=== PATIENT | female | born 2000 | race Caucasian/White ===

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

== ENCOUNTER 2022-05-26 14:31 | Emergency (ER) | payer SELFPAY ==
[2022-05-26 14:58] VITALS: BP 131/83; PULSE 87
== END 2022-05-26 15:00 | disposition left against medical advice (07) ==
LOC: FB.ED 14:31
DX: Z53.21 Procedure and treatment not carried out due to patient leaving prior to being seen by health care provider (principal)

== ENCOUNTER 2023-10-11 05:09 | Emergency (ER) | payer BC, OTHER ==
[2023-10-11] MEDS: methylPREDNISolone Sodium Succinate 125 MG/2 ML SDV IM ONE (05:32)
[2023-10-11] MEDS: Albuterol/Ipratropium 3.0-0.5 MG/3 ML Neb Soln NEB ONE (05:32)
[2023-10-11 06:00] VITALS: BP 138/88; PULSE 95
== END 2023-10-11 06:27 | disposition home or self-care (01) ==
LOC: FB.ED 05:09
DX: J06.9 Acute upper respiratory infection, unspecified (principal); J45.901 Unspecified asthma with (acute) exacerbation; Z79.899 Other long term (current) drug therapy
CPT/HCPCS: 94640; 96372; 99284; J2930; J7620